=== PATIENT | male | born 1975 | race Caucasian/White ===

== ENCOUNTER 2021-10-28 13:04 | Emergency (ER) | payer OTHER ==
[2021-10-28 14:30] LABS: AMPHETAMINES NEGATIVE (NEGATIVE); BARBITURATES NEGATIVE (NEGATIVE); ECSTASY (MDMA) NEGATIVE (NEGATIVE); MARIJUANA (THC) NEGATIVE (NEGATIVE); METHADONE NEGATIVE (NEGATIVE); OPIATES NEGATIVE (NEGATIVE); OXYCODONE NEGATIVE (NEGATIVE)
[2021-10-28 14:32] LABS: CLARITY CLEAR (CLEAR); COLOR YELLOW (YELLOW); PROTEIN TRACE (LOW) mg/dL (NEGATIVE); pH 5.5 (5.0-9.0)
[2021-10-28 14:33] LABS: BILIRUBIN NEGATIVE (NEGATIVE); BLOOD NEGATIVE Ery/uL (NEGATIVE); GLUCOSE (U) 3+ mg/dL (NORMAL); NITRITE NEGATIVE (NEGATIVE); UROBILINOGEN 0.2 mg/dL (0.2-1.0)
[2021-10-28 14:34] LABS: LEUKOCYTES NEGATIVE Leu/uL (NEGATIVE); URINARY WBC RARE
[2021-10-28 14:35] LABS: HCT 53.9 % (42.0-52.0); HGB 18.1 g/dl (13.2-18.0); MCH 29.8 pg (25.0-31.0); MCHC 33.6 g/dL (32.0-36.0); MCV 88.7 fL (78.0-100.0); RBC 6.08 M/uL (4.70-6.00); URINARY RBC RARE; WBC 7.4 K/uL (4.0-10.5)
[2021-10-28 14:36] LABS: MPV 10.4 fL (6.0-9.5); NEUTROPHIL 57.3 % (41-80); PLT 168 K/uL (150-400); RDW 13.3 % (11.5-14.0)
[2021-10-28 14:37] LABS: BASOPHIL 1.1 % (0-2); EOSINOPHIL 1.1 % (0-5); LYMPHOCYTE 33.2 % (15-48); MONOCYTE 6.6 % (0-12)
[2021-10-28 14:38] LABS: NRBC 0
[2021-10-28 14:39] LABS: ALBUMIN 3.9 g/dL (3.4-5.0); CREATININE 1.59 mg/dL (0.67-1.17); GLOBULIN (CALCULATION) 4.1 g/dL; POTASSIUM 4.4 mmol/L (3.5-5.1)
[2021-10-28 14:40] LABS: BILIRUBIN - TOTAL 0.7 mg/dL (0.2-1.0)
== END 2021-10-28 18:14 | disposition home or self-care (01) ==
LOC: FER 13:04
PROVIDERS: Emergency Medicine
DX: S06.5X9A Traumatic subdural hemorrhage with loss of consciousness of unspecified duration, initial encounter (principal); I10 Essential (primary) hypertension; E11.9 Type 2 diabetes mellitus without complications; Z79.4 Long term (current) use of insulin; X58.XXXA Exposure to other specified factors, initial encounter; Y92.89 Other specified places as the place of occurrence of the external cause; Y99.0 Civilian activity done for income or pay
CPT/HCPCS: 36415; 70450; 72125; 80053; 80305; 81001; 85025; J7030